=== PATIENT | female | born 1985 | race American Indian/Alaskan Native ===

== ENCOUNTER 2019-09-28 11:28 | Emergency (ER) | payer MEDICAID, OTHER ==
[2019-09-28 11:43] VITALS: BP 135/77
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
== END 2019-09-28 13:09 | disposition left against medical advice (07) ==
LOC: ED 11:28
DX: M54.5 Low back pain (principal); M54.2 Cervicalgia; V49.49XA Driver injured in collision with other motor vehicles in traffic accident, initial encounter; Y93.89 Activity, other specified; Y92.410 Unspecified street and highway as the place of occurrence of the external cause; Y99.8 Other external cause status
CPT/HCPCS: 99281

== ENCOUNTER 2020-11-01 07:46 | Inpatient (IN) | payer OTHER ==
[2020-11-01] MEDS ORDERED: LACTATED RINGERS 1,000 ML ONE (07:59)
[2020-11-01] MEDS ORDERED: OXYTOCIN DRIP 30,000 MILLIUNITS/500 ML BAG IV ONE (07:59)
[2020-11-01] MEDS ORDERED: TERBUTALINE 1 MG/1 ML INJ SUB-Q PRN (08:49)
[2020-11-01] MEDS ORDERED: LIDOCAINE (2%) 20 MG/1 ML VIAL 20 ML MDV INFILTRATI ONE (08:49)
[2020-11-01] MEDS ORDERED: MINERAL OIL 30 ML ORAL LIQD PO PRN ×2 (08:49→09:30)
[2020-11-01] MEDS ORDERED: PROMETHAZINE 25 MG RECT SUPP PR PRN (08:54)
[2020-11-01] MEDS ORDERED: ONDANSETRON 4 MG/2 ML INJ IV PRN (08:54)
[2020-11-01] MEDS ORDERED: WITCH HAZEL/ GLYCERIN PAD TP PRN (08:54)
[2020-11-01] MEDS ORDERED: PROMETHAZINE 25 MG TAB PO PRN (08:54)
[2020-11-01] MEDS ORDERED: MAGNESIUM HYDROXIDE (MOM) ORAL LIQD UDC PO PRN (08:54)
[2020-11-01] MEDS ORDERED: LANOLIN/ZINC/DIMETHICONE (LANSINOH) 7 GM TP PRN (08:54)
[2020-11-01] MEDS ORDERED: OXYTOCIN DRIP 30 UNITS/500 ML BAG IV SCH (09:00)
[2020-11-01] MEDS ORDERED: diphenhydrAMINE 25 MG CAP PO PRN (09:30)
[2020-11-01] MEDS ORDERED: AMPICILLIN/NS 2 GM/100 ML 2 GM/100 ML BAG IV SCH (09:30)
[2020-11-01] MEDS ORDERED: ePHEDrine SULFATE 50 MG/1 ML INJ IV PRN (09:30)
[2020-11-01 09:52] LABS: Hemoglobin 10.7 gm/dl (10.1-14.3); Mean Corpuscular HGB Conc 34 % (30-34); Mean Corpuscular Volume 79 fl (79-97); Platelet Count 193 K/mm3 (140-440); Red Blood Count 4.07 M/mm3 (3.65-5.03); Red Cell Distribution Width 15.1 % (13.2-15.2)
[2020-11-01] MEDS ORDERED: PRENATAL VIT27-FE FUMARATE-FOLIC ACID VIT TAB PO SCH (10:00)
[2020-11-01] MEDS ORDERED: PNV CALCIUM PO SCH (10:00)
[2020-11-01] MEDS ORDERED: FOLIC ACID PO SCH (10:00)
[2020-11-01] MEDS ORDERED: [UNRECOGNIZED DRUG - OTHER] PO SCH (10:00)
[2020-11-01] MEDS ORDERED: IRON PO SCH (10:00)
[2020-11-01] MEDS ORDERED: LACTATED RINGERS 1,000 ML IV SCH (10:00)
--- NOTE | 2020-11-01 10:05 | History and Physical Report ---
History of Present Illness Date of examination: 11/01/20 Date of admission: 11/01/20 07:59 Chief complaint: c/o labor pains times several hours History of present illness: 34 y/o AMA presented to OB triage at 37.1 wks. SVE: 8/9 cm in active labor. Pt stated she initiated her pnc at [facility] at about 7 mos and had an uneventful preg. Pt denies med/surg/social/ or family hx of problems. Her GBS is unknown and her records are not avail. Pt was admitted to L&D for delivery. Past History Past Medical History: no pertinent history Past Surgical History: no surgical history Family/Genetic History: none Social history: no significant social history, , lives with family, full code - Obstetrical History : 6 Para: 5 Number of Pregnancies: 0 Number of Living Children: 5 Medications and Allergies Allergies Allergy/AdvReac Type Severity Reaction Status Date / Time No Known Allergies Allergy Unverified 04/04/15 18:25 Home Medications Medication Instructions Recorded Confirmed Last Taken Type Pnv,Calcium 72/Iron/Folic Acid 1 tab PO DAILY 04/04/15 04/04/15 Unknown History [Pnv Plus Multivit Tab] Cyclobenzaprine [Flexeril] 10 mg PO QHS PRN #20 tablet 09/28/19 Unknown Rx Active Meds: Active Medications Bisacodyl (Bisacodyl 10 Mg Rect Supp) 10 mg NH BID PRN PRN Reason: Constipation Diphenhydramine HCl (Diphenhydramine 25 Mg Cap) 25 mg PO Q6H PRN PRN Reason: Itching Ephedrine Sulfate (Ephedrine Sulfate 50 Mg/1 Ml Inj) 10 mg IV Q2M PRN PRN Reason: Hypotension Oxytocin/Sodium Chloride (Pitocin/Ns 30 Unit/500ml) 30 units in 500 mls @ 2 m ls/hr IV TITR KAMRAN; Protocol Lactated Ringer's (Lactated Ringers) 1,000 mls @ 125 mls/hr IV DIRECT KAMRAN Ampicillin Sodium (Ampicillin/Ns 1 Gm/50 Ml) 1 gm in 50 mls @ 100 mls/hr IV Q4H KAMRAN; Protocol Ampicillin Sodium (Ampicillin/Ns 2 Gm/100 Ml) 2 gm in 100 mls @ 100 mls/hr IV ONCE KAMRAN; Protocol Stop: 11/01/20 14:00 Ibuprofen (Ibuprofen 600 Mg Tab) 600 mg PO Q6H KAMRAN Magnesium Hydroxide (Magnesium Hydroxide (Mom) Oral Liqd Udc) 30 ml PO HS PRN PRN Reason: Constipation Mineral Oil (Mineral Oil 30 Ml Oral Liqd) 30 ml PO QHS PRN PRN Reason: Constipation Stop: 11/01/20 10:30 Multi-Ingredient Ointment (Lanolin/Zinc/Dimethicone (Lansinoh) 7 Gm) 1 applic TP PRN PRN PRN Reason: Sore Nipples Multivitamins/Iron/Calcium ( Xhf97-El Fumarate-Folic Acid Vit Tab) 1 each PO DAILY KAMRAN Ondansetron HCl (Ondansetron 4 Mg/2 Ml Inj) 4 mg IV Q8H PRN PRN Reason: Nausea And Vomiting Promethazine HCl (Promethazine 25 Mg Rect Supp) 25 mg NH Q6H PRN PRN Reason: Nausea And Vomiting Promethazine HCl (Promethazine 25 Mg Tab) 25 mg PO Q6H PRN PRN Reason: Nausea And Vomiting Sodium Chloride (Sodium Chloride 0.9% 10 Ml Flush Syringe) 10 ml IV PRN [facility] Terbutaline Sulfate (Terbutaline 1 Mg/1 Ml Inj) 0.25 mg SUB-Q ONCE PRN PRN Reason: Hyperstimulation/Hypertonicity Witch Ginny/Glycerin (Witch Ginny/ Glycerin Pad) 1 each TP PRN PRN PRN Reason: Hemorrhoid/cleansing/soothing Review of Systems All systems: negative Eyes: deferred Ears, nose, mouth and throat: deferred Breasts: normal Genitourinary: normal appearance Rectal Exam: deferred - Vital Signs Vital signs: Vital Signs Pulse BP 94 H 109/59 11/01/20 08:37 11/01/20 08:37 Temp Pulse Resp BP Pulse Ox 76 109/51 100 11/01/20 09:56 11/01/20 09:55 11/01/20 09:56 - Physical Exam Breasts: Positive: normal Abdomen: Positive: normal appearance, soft, normal bowel sounds Genitourinary (Female): Positive: normal external genitalia, normal perenium Vulva: both: normal Vagina: Positive: normal moisture Uterus: Positive: enlarged, normal contour, other (gravid) Anus/Rectum: Positive: normal perianal skin Extremities: Positive: normal - Obstetrical FHR: auscultation normal, category 1 Uterine Contraction Monitor Mode: External Cervical Dilatation: 10 Cervical Effacement Percentage: 100 station: -1 Uterine Contraction Pattern: Regular Uterine Tone Measurement Phase: Resting Uterine Contraction Intensity: Strong/Firm Results Result Diagrams: 11/01/20 08:15 Abnormal lab results 11/01/20 Range/Units 08:15 MCH 26 L (28-32) pg All other labs normal. Assessment and Plan A: IUP 37.1 wks AMA; Grand multib GBS unknown P: Admit to L&D GBS prophylaxis Obtain rec from pt's provider Anticipate - Patient Problems (1) Supervision of normal IUP (intrauterine ) in multigravida Current Visit: Yes Status: Acute
[2020-11-01] MEDS: IBUPROFEN 600 MG TAB PO SCH ×3 (10:06→21:29)
--- NOTE | 2020-11-01 10:24 | Procedure Note ---
OB Delivery Note - Delivery Date of Delivery: 11/01/20 Surgeon: STEPHAN PETERS Estimated blood loss: 100cc - Vaginal Delivery presentation: vertex Delivery position: OA Intrapartum events: meconium, precipitous labor- <3hr Delivery induction: none Delivery monitor: external FHT Route of delivery: Delivery placenta: spontaneous Delivery cord: 3 umbilical vessels Episiotomy: none Delivery laceration: none Anesthesia: none Delivery comments: Called to for delivery. SVE 10/100/-1 and pt was pushing. of a live viable female infant in OA position. Spontaneous delivery of head and shoulders. Infant was placed on mom's chest for skin to skin bonding while nurses dried and stimulated baby. Delayed cord clamping then cord was doubled clamped and the FOB was allowed to cut the cord. was taken to the warmer by NICU nurse for an assess. 8/9. Spontaneous delivery of an intact placenta with 3CV. FF@ U2 with IV Pitocin and fundal massage. An exploration of tears revealed none. EBL 100cc FW 3035. Mom and baby were left in stable cond with nurse and FOB. Cord blood was obtained. - Infant A at 1 minute: 8 at 5 minutes: 9 Infant Gender: Female (FW [id number])
[2020-11-01] MEDS ORDERED: AMPICILLIN/NS 1 GM/50 ML 1 GM/50 ML BAG IV SCH (12:53)
[2020-11-01 15:19] LABS: Hematocrit 32.5 % (30.3-42.9); Hemoglobin 10.7 gm/dl (10.1-14.3); Lymphocytes # (Auto) 0.9 K/mm3 (1.2-5.4); Lymphocytes % (Auto) 7.2 % (13.4-35.0); Mean Corpuscular HGB Conc 33 % (30-34); Mean Corpuscular Volume 80 fl (79-97); Monocytes # (Auto) 0.6 K/mm3 (0.0-0.8); Monocytes % (Auto) 4.5 % (0.0-7.3); Platelet Count 177 K/mm3 (140-440); Red Blood Count 4.08 M/mm3 (3.65-5.03); Red Cell Distribution Width 15.2 % (13.2-15.2)
[2020-11-02] MEDS: IBUPROFEN 600 MG TAB PO SCH ×2 (06:09→13:00)
--- NOTE | 2020-11-02 12:47 | Progress Note ---
Assessment and Plan A: day 1 S/P . Anemia. P: Supplement with iron. Anticipate discharge home tomorrow if patient continues to do well. Subjective - Subjective Date of service: 11/02/20 Principal diagnosis: day 1 S/P Patient reports: appetite normal, voiding normally, pain well controlled, flatus, ambulating normally, no dizzy ambulation, no nauseated [place]: doing well Objective - Vital Signs Latest vital signs: Vital Signs Temp Pulse Resp BP Pulse Ox 11/02/20 08:26 98.4 F 85 18 120/74 99 11/02/20 01:14 98.3 F 76 18 118/67 97 11/01/20 21:21 98.2 F 83 18 116/63 100 Intake and Output 11/01/20 11/02/20 11/02/20 23:59 07:59 15:59 Intake Total 500 480 Output Total 500 Balance 0 480 Intake: IV 300 Right Distal Port 300 Antecubital Oral 200 Intake, Free Water 480 Output: Urine 500 Void 500 Other: Total, Intake Amount 200 Total, Output Amount 500 # Voids Void 1 - Exam Cardiovascular: Present: Regular rate Lungs: Present: Clear to auscultation Abdomen: Present: normal appearance, soft. Absent: distention, tenderness, guarding, rigidity Uterus: Present: normal, firm, fundal height below umbilicus. Absent: bogginess, tenderness Extremities: Present: normal. Absent: tenderness - Labs Labs: Abnormal lab results 11/01/20 Range/Units 14:35 WBC 12.7 H (4.5-11.0) K/mm3 MCH 26 L (28-32) pg Lymph % (Auto) 7.2 L (13.4-35.0) % Lymph # (Auto) 0.9 L (1.2-5.4) K/mm3 Seg Neutrophils % 88.3 H (40.0-70.0) % Seg Neutrophils # 11.2 H (1.8-7.7) K/mm3
[2020-11-02] MEDS: FERROUS SULFATE 325 MG TAB PO SCH ×2 (13:00→22:24)
[2020-11-03] MEDS: IBUPROFEN 600 MG TAB PO SCH ×3 (00:18→12:08)
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
--- NOTE | 2020-11-03 06:22 | Discharge Summary ---
Providers - Providers Date of Admission: 11/01/20 07:59 Date of discharge: 11/03/20 Attending physician: SHIMON ROBERSON JR, MD Primary care physician: JUANCHO FRENCH MD Hospitalization Reason for admission: active labor Delivery: Episiotomy: none Laceration: none Other procedures: none complications: none Discharge diagnosis: IUP at term delivered [place] baby: female Pertinent studies: Labs Hospital course: Stable hospital course Condition at discharge: Good Disposition: DC-01 TO HOME OR SELFCARE - Discharge Diagnoses (1) Term delivered Status: Acute (2) Anemia Status: Acute Plan - Provider Discharge Summary Activity: routine, no sex for 6 weeks, no heavy lifting 4 weeks, no strenuous exercise Diet: routine Instructions: routine Additional instructions: Continue taking your vitamins and iron supplements at home. Call your doctor immediately for: * Fever > 100.5 * Heavy vaginal bleeding ( >1 pad per hour) * Severe persistent headache * Shortness of breath * Reddened, hot, painful area to leg or breast - Follow up plan Follow up: PRIMARY CAREMD [Primary Care Provider] - 6 Weeks
[2020-11-03] MEDS: FERROUS SULFATE 325 MG TAB PO SCH (10:31)
[2020-11-03 17:10] VITALS: BP 116/67
== END 2020-11-03 16:08 | disposition home or self-care (01) | DRG 807 ==
LOC: TRG 07:46 → LD 07:46 → TRG 07:54 → LD 07:59 → OB 11:26
PROVIDERS: ADMIT Obstetrics & Gynecology; ATTEND Obstetrics & Gynecology
PROC: 10E0XZZ Delivery of Products of Conception, External Approach (ICD-10-PCS; principal; 2020-11-01)
DX: O62.3 Precipitate labor (principal); Z37.0 Single live birth; O77.0 Labor and delivery complicated by meconium in amniotic fluid; D64.9 Anemia, unspecified; Z20.822 Contact with and (suspected) exposure to COVID-19; Z3A.37 37 weeks gestation of pregnancy
CPT/HCPCS: 36415; 85025; 85027; 86850; 86900; 86901; G0378; U0003

== ENCOUNTER 2021-06-20 19:40 | Emergency (ER) | payer OTHER, MEDICAID ==
[2021-06-20 20:01] VITALS: BP 134/83
[2021-06-20] MEDS ORDERED: IBUPROFEN 800 MG TAB PO ONE (20:27)
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
== END 2021-06-20 22:04 | disposition home or self-care (01) ==
LOC: ED 19:40
DX: S16.1XXA Strain of muscle, fascia and tendon at neck level, initial encounter (principal); S86.911A Strain of unspecified muscle(s) and tendon(s) at lower leg level, right leg, initial encounter; Z79.899 Other long term (current) drug therapy; V87.7XXA Person injured in collision between other specified motor vehicles (traffic), initial encounter; Y93.89 Activity, other specified; Y92.488 Other paved roadways as the place of occurrence of the external cause; Y99.8 Other external cause status
CPT/HCPCS: 72040; 99283